=== PATIENT | male | born 1990 | race Caucasian/White ===

== ENCOUNTER 2021-04-18 19:34 | Emergency (ER) | payer MEDICAID ==
[~2021-04-18] VITALS: Ht 180.3 cm; Wt 82.0 kg
--- NOTE | 2021-04-18 20:19 | NUR ---
patient came to ER because he said that he was having homicidal thoughts towards family members of his. Patient denies all suicidal thoughts or any ideation. Patient states that he needs further medical evaluation
--- NOTE | 2021-04-18 20:20 | NUR ---
Patient sitting comfortably in bed. belongings secured and placed in the safe. Patients room secured. Patient stable and states that he has not current needs at this time. VSS.
[2021-04-18 20:22] LABS: BASOPHILS % (AUTO) 1 % (0-1); EOSINOPHILS % (AUTO) 2 % (1-7); LYMPHOCYTES % (AUTO) 35 % (22-44); MEAN CORPUSCULAR HEMOGLOBIN 29.9 pg (27.5-34.5); MEAN PLATELET VOLUME 6.3 fL (7.4-10.4); MONOCYTES % (AUTO) 9 % (2-9); NEUTROPHILS % (AUTO) 54 % (42-75); PLATELET COUNT 430 x10^3/uL (130-400); RED BLOOD COUNT 5.15 x10^6/uL (4.38-5.82)
[2021-04-18 20:33] LABS: ALBUMIN 4.5 g/dL (3.4-5.0); ANION GAP 5 mmol/L (5-15); CALCIUM 9.4 mg/dL (8.5-10.1); CHLORIDE 107 mmol/L (98-107); CREATININE 1.46 mg/dL (0.7-1.3)
[2021-04-18 20:37] LABS: SALICYLATE LEVEL < 1.7 mg/dL (2.8-20.0)
--- NOTE | 2021-04-18 20:57 | NUR ---
PATIENT SLEEPING COMFORTABLY IN BED. NO ACUTE DISTRESS NOTED. PATIENT DOES NOT APPEAR TO HAVE ANY CURRENT NEEDS AT THIS TIME.
--- NOTE | 2021-04-18 22:02 | NUR ---
PATIENT SLEEPING COMFORTABLY IN BED. NO ACUTE DISTRESS NOTED. PATIENT DOES NOT APPEAR TO HAVE ANY CURRENT NEEDS AT THIS TIME.
[2021-04-18 22:24] LABS: AMPHETAMINE SCREEN, URINE Positive (Negative); BARBITURATE SCREEN, URINE Negative (Negative); BENZODIAZEPINE SCREEN, URINE Negative (Negative); CANNABINOID SCREEN, URINE Negative (Negative); COCAINE SCREEN, URINE Negative (Negative); METHADONE SCREEN, URINE Negative (Negative); OPIATE SCREEN, URINE Negative (Negative)
--- NOTE | 2021-04-18 22:39 | NUR ---
PATIENT SLEEPING COMFORTABLY IN BED. NO ACUTE DISTRESS NOTED. PATIENT DOES NOT APPEAR TO HAVE ANY CURRENT NEEDS AT THIS TIME.
--- NOTE | 2021-04-18 23:42 | NUR ---
PATIENT SLEEPING COMFORTABLY IN BED. NO ACUTE DISTRESS NOTED. PATIENT DOES NOT APPEAR TO HAVE ANY CURRENT NEEDS AT THIS TIME.
--- NOTE | 2021-04-19 00:13 | NUR ---
PATIENT SLEEPING COMFORTABLY IN BED. NO ACUTE DISTRESS NOTED. PATIENT DOES NOT APPEAR TO HAVE ANY CURRENT NEEDS AT THIS TIME.
--- NOTE | 2021-04-19 00:58 | NUR ---
PATIENT SLEEPING COMFORTABLY IN BED. NO ACUTE DISTRESS NOTED. PATIENT DOES NOT APPEAR TO HAVE ANY CURRENT NEEDS AT THIS TIME.
--- NOTE | 2021-04-19 03:08 | NUR ---
pt sleeping, resp even/unlabored. in line of sight of sitter
--- NOTE | 2021-04-19 04:45 | NUR ---
pt provided with water per request. telepsych monitor at bedside. no other needs. sitter at bedside
--- NOTE | 2021-04-19 05:22 | NUR ---
pt given some cereal per request. no other needs at this time.
--- NOTE | 2021-04-19 07:15 | NUR ---
PT RESTING CALMLY IN BED WITH EYES CLOSED. NO STATED NEEDS AT THIS TIME. WILL CONTINUE TO MONITOR.
--- NOTE | 2021-04-19 08:59 | NUR ---
SOC PSYCH DOC IN SPEAKING WITH PT AT THIS TIME. VIA DOC BOT
--- NOTE | 2021-04-19 09:50 | NUR ---
PT RESTING CALMLY IN BED AT THIS TIME. NO STATED NEEDS. SITTER AT DOOR FOR FREQUENT OBS.
[2021-04-19 10:10] VITALS: BP 101/68
--- NOTE | 2021-04-19 10:15 | NUR ---
PT GIVEN MEAL TRAY. SITTER AT DOOR FOR OBS. WILL CONTINUE TO MONITOR.
== END 2021-04-19 11:11 ==
LOC: ED 21:20 → MERGE 21:39 → UNDOADMIN 21:39 → EDIP 21:39 → ED 22:34 → UNDODISIN 04-19 11:11 → ED 04-19 11:11
DX: F41.1 Generalized anxiety disorder (principal); F15.122 Other stimulant abuse with intoxication with perceptual disturbance
CPT/HCPCS: 36415; 80048; 80299; 80307; 80320; 80329; 82040; 85025; 99283; 99285; G0378; G0480